=== PATIENT | male | born 2000 | race Caucasian/White ===

== ENCOUNTER → 2022-03-14 | Day surgery (SDC) | payer OTHER ==
[2022-03-11 09:22] VITALS: BMI 26.6
[~2022-03-14] MED LIST: LACTATED RINGERS 1,000 ML IV SCH; LIDOCAINE 1% (10MG/ML) FOR IV START INTRADERMA PRN; MIDAZOLAM 2 MG/2 ML VIAL ONE; PROPOFOL 10 MG/ML 20 ML VIAL IV ONE; fentaNYL (PF) 50 MCG/ML 2 ML AMP ONE
[2022-03-14 12:11] VITALS: TEMP 97.8
--- NOTE | 2022-03-14 12:24 | P.GSHP ---
History of Present Illness H&P Date: 03/14/22 Chief Complaint: Rectal bleeding This a 19-year-old male who presents today for colonoscopy. He's had issues with rectal bleeding. Past Medical History Past Medical History: No Reported History Additional Past Medical History / Comment(s): frequent issues with abdominal pain, nausea, and "abscess in rectum" History of Any Multi-Drug Resistant Organisms: None Reported Past Surgical History: No Surgical Hx Reported Additional Past Anesthesia/Blood Transfusion Reaction / Comment(s): has never had anesth. Past Psychological History: No Psychological Hx Reported Smoking Status: Current every day smoker, Vaper Past Alcohol Use History: Occasional Past Drug Use History: Marijuana Medications and Allergies Home Medications Medication Instructions Recorded Confirmed Type No Known Home Medications 03/11/22 03/14/22 History Allergies Allergy/AdvReac Type Severity Reaction Status Date / Time bee venom protein (honey bee) Allergy Rash/Hives Verified 03/14/22 12:01 cat dander Allergy Unknown Verified 03/14/22 12:01 Surgical - Exam Vital Signs Temp Pulse Resp BP Pulse Ox 97.8 F 86 16 129/61 97 03/14/22 12:10 03/14/22 12:10 03/14/22 12:10 03/14/22 12:10 03/14/22 12:10 - General well developed, well nourished, no distress - Eyes PERRL - ENT normal pinna - Neck no masses - Respiratory normal expansion - Cardiovascular Rhythm: regular - Abdomen Abdomen: soft, non tender Assessment and Plan Assessment: Rectal bleeding. We'll perform colonoscopy
--- NOTE | 2022-03-14 12:36 | P.OP ---
Date of Procedure: 03/14/22 Preoperative Diagnosis: Rectal bleeding Postoperative Diagnosis: Internal and external hemorrhoids Procedure(s) Performed: Colonoscopy Anesthesia: MAC Surgeon: Kyler Barton Pathology: none sent Condition: stable Disposition: PACU Description of Procedure: Patient's placed on the endoscopy table in the lateral position. He received IV sedation. Digital rectal exam was performed. Is revealed internal and external hemorrhoids. The flexible colonoscope was then placed patient anus and passed throughout the entire colon. Ileocecal valve was visualized. The cecum, ascending and transverse colon appeared normal. The descending and sigmoid colon appeared normal. The scope was then brought back the rectum this appeared normal. Scope withdrawn to anus and internal and external hemorrhoids were noted. There is no evidence of any rectal bleeding on today's exam. Presumed patient may have had bleeding from hemorrhoids.
[2022-03-14 13:46] VITALS: BP 117/73; PULSE 60; RESP 14
== END | disposition home or self-care (01) ==
LOC: ORWHC2ENDO 11:42
PROVIDERS: ATTEND Surgery
DX: K62.5 Hemorrhage of anus and rectum (principal); K64.4 Residual hemorrhoidal skin tags; K64.8 Other hemorrhoids; F17.200 Nicotine dependence, unspecified, uncomplicated; Z91.030 Bee allergy status
CPT/HCPCS: 45378; J2250; J3010; J2704

== ENCOUNTER 2022-06-07 09:54 | Day surgery (SDC) | payer OTHER ==
[2022-06-06 09:10] VITALS: BMI 25.8
[~2022-06-07 09:54] MED LIST changes: +ACETAMINOPHEN TAB 500 MG TAB PO PRN; +DEXAMETHASONE SOD PHOSPHATE 4 MG/ML 1 ML VIAL IV ONE; +HEPARIN SODIUM,PORCINE/PF 5,000 UNIT/0.5 ML SYRINGE SQ PRN; +HYDROmorphone 0.5 MG/0.5 ML SYRINGE IVP PRN; -MIDAZOLAM 2 MG/2 ML VIAL ONE; +ONDANSETRON 4 MG/2 ML VIAL IVP ONE; -PROPOFOL 10 MG/ML 20 ML VIAL IV ONE; +Pre Op ABX Message 1 EACH MISC MISCELLANE ONE; +SCOPOLAMINE 1 MG/72 HR PATCH TRANSDERM ONE; -fentaNYL (PF) 50 MCG/ML 2 ML AMP ONE
[2022-06-07] MEDS ORDERED: ONDANSETRON 4 MG/2 ML VIAL ONE (11:10)
[2022-06-07] MEDS ORDERED: DEXAMETHASONE SOD PHOSPHATE 4 MG/ML 1 ML VIAL IV ONE (11:13)
[2022-06-07] MEDS ORDERED: ONDANSETRON 4 MG/2 ML VIAL IVP ONE ×2 (11:13→13:11)
[2022-06-07] MEDS ORDERED: HYDROmorphone 0.5 MG/0.5 ML SYRINGE IVP PRN (11:13)
[2022-06-07] MEDS ORDERED: MIDAZOLAM 2 MG/2 ML VIAL IV PRN (11:13)
[2022-06-07] MEDS ORDERED: LIDOCAINE 1% (10MG/ML) FOR IV START INTRADERMA PRN (11:13)
[2022-06-07] MEDS ORDERED: LACTATED RINGERS 1,000 ML IV SCH (11:13)
[2022-06-07] MEDS ORDERED: MIDAZOLAM 2 MG/2 ML VIAL ONE (12:04)
[2022-06-07] MEDS ORDERED: KETAMINE 10 MG/ML 20 ML VIAL ONE (12:04)
[2022-06-07] MEDS ORDERED: KETOROLAC 15 MG/ML 1 ML VIAL ONE (12:04)
[2022-06-07] MEDS ORDERED: fentaNYL (PF) 50 MCG/ML 2 ML AMP ONE (12:04)
[2022-06-07] MEDS ORDERED: LIDOCAINE 2% INJ 20 MG/ML (2 ML VIAL) ONE (12:04)
[2022-06-07] MEDS ORDERED: BUPIVACAIN-EPI 0.25%-1:200,000 30 ML VIAL SQ ONE (12:24)
[2022-06-07] MEDS ORDERED: SODIUM CHLORIDE 0.9% 50 ML with ceFAZolin 2,000 MG IV ONE ×2 (12:24)
[2022-06-07] MEDS ORDERED: BUPIVACAINE (PF) 0.25% 30 ML VIAL SQ ONE (12:24)
--- NOTE | 2022-06-07 12:38 | P.OP ---
Date of Procedure: 06/07/22 Preoperative Diagnosis: Perirectal abscess Postoperative Diagnosis: Perirectal abscess Anal fistula Procedure(s) Performed: This is drained. And unroofing of anal fistula Anesthesia: RICCARDO Surgeon: Kyler Barton Estimated Blood Loss (ml): 5 Pathology: none sent Condition: stable Disposition: PACU Description of Procedure: Patient's placed on the operative table in the prone position. He received IV sedation. His anus was prepped and draped usual sterile fashion. In the left perianal position at the 8 o'clock position there was evidence of a small perianal abscess he's 11 blade this area was incised. There is a small amount of fibropurulent material. There appeared to be evidence of a fistulous tract. This was probed with the anal probe and the anal fistula was then found entering the anus. The area of the anal fissure was unroofed 11 blade. A left cautery w as used to control emesis. The wound was clean. Sterile dressing was applied. Patient top she will was sent to recovery room in stable condition.
[2022-06-07 12:49] VITALS: RESP 16; TEMP 97.4
[2022-06-07] MEDS ORDERED: LORazepam 2 MG/ML INJ IV ONE (13:05)
[2022-06-07 14:22] VITALS: BP 106/69; PULSE 57
== END 2022-06-07 14:38 | disposition home or self-care (01) ==
LOC: OR 09:54
PROVIDERS: ATTEND Surgery
DX: K60.3 Anal fistula (principal); F17.210 Nicotine dependence, cigarettes, uncomplicated; F12.20 Cannabis dependence, uncomplicated; Z91.030 Bee allergy status; Z91.048 Other nonmedicinal substance allergy status; Z83.3 Family history of diabetes mellitus; Z82.49 Family history of ischemic heart disease and other diseases of the circulatory system; Z82.3 Family history of stroke; Z82.61 Family history of arthritis; Z79.1 Long term (current) use of non-steroidal anti-inflammatories (NSAID); Z79.2 Long term (current) use of antibiotics; Z79.891 Long term (current) use of opiate analgesic
CPT/HCPCS: 46060; J2250; J2060; J1100; J2405; J0690; J3010; J1885; J1644; J2001